=== PATIENT | female | born 1970 | race Caucasian/White ===

== ENCOUNTER 2018-04-12 06:51 | Day surgery (SDC) | payer OTHER ==
[2018-04-11 13:40] VITALS: BMI 29.8
[2018-04-12] MEDS ORDERED: ONDANSETRON 4 MG/2 ML VIAL IVPUSH PRN (07:25)
--- NOTE | 2018-04-12 07:29 | HP ---
Admitting History and Physical - Admission History of Present Illness: Patient is a 48 y/o female with a past medical history of depression and anxiety. Patient presents for ect, this will be her first ect. She reports ongoing feelings of depression. Patient denies any suicidal or homicidal ideation, visual or auditory hallucinations. She reports her current medication regimen has been ineffective and was referred to ECT. Patient does report a hospitalization 10 years ago for depression. Patient does report compliance with prescribed medications. History Source: Patient Limitations to Obtaining History: No Limitations - Past Medical History ...LMP: 03/15/18 - Past Surgical History Past Surgical History: Yes: None - Smoking History Smoking history: Never smoked Have you smoked in the past 12 months: No - Alcohol/Substance Use Hx Alcohol Use: No History of Substance Use: reports: None - Social History Usual Living Arrangement: Yes: With Spouse ADL: Independent Occupation: homemaker History of Recent Travel: No Home Medications - Allergies Allergies/Adverse Reactions: Allergies Allergy/AdvReac Type Severity Reaction Status Date / Time No Known Drug Allergies Allergy Verified 04/11/18 13:19 - Home Medications Home Medications: Ambulatory Orders Cariprazine HCl [Vraylar] 3 mg PO DAILY 04/11/18 Clozapine [Clozaril] 400 mg PO HS 04/11/18 Lorazepam [Ativan] 0.5 mg PO BID 04/11/18 Sertraline HCl [Zoloft 20mg/mL Oral Solution -] 50 mg PO DAILY 04/11/18 Family Disease History - Family Disease History Family History: Denies Review of Systems - Review of Systems Constitutional: reports: No Symptoms Eyes: reports: No Symptoms HENT: reports: No Symptoms Neck: reports: No Symptoms Cardiovascular: reports: No Symptoms Respiratory: reports: No Symptoms Gastrointestinal: reports: No Symptoms Genitourinary: reports: No Symptoms Musculoskeletal: reports: No Symptoms Integumentary: reports: No Symptoms Neurological: reports: No Symptoms Endocrine: reports: No Symptoms Hematology/Lymphatic: reports: No Symptoms Psychiatric: reports: Anxiety, Depression Physical Examination Constitutional: Yes: Well Nourished, Anxious Eyes: Yes: WNL, Conjunctiva Clear, EOM Intact HENT: Yes: WNL, Atraumatic, Normocephalic Neck: Yes: WNL, Supple, Trachea Midline Cardiovascular: Yes: WNL, Regular Rate and Rhythm, S1, S2 Respiratory: Yes: WNL, Regular, CTA Bilaterally Gastrointestinal: Yes: WNL, Normal Bowel Sounds, Soft ...Rectal Exam: Yes: Deferred Renal/: Yes: WNL Musculoskeletal: Yes: WNL Extremities: Yes: WNL Edema: No Peripheral Pulses WNL: Yes Peripheral Pulses: Left Radial: 4+, Right Radial: 4+, Left Doralis Pedis: 3+, Right Dorsalis Pedis: 3+, Left Femoral: 3+, Right Femoral: 3+ Integumentary: Yes: Other (liner healed scars to billateral distal extremities.) Neurological: Yes: WNL, Alert, Oriented ...Motor Strength: WNL Psychiatric: Yes: WNL, Alert, Oriented (reviewed 04/19 wnl) Imaging - Results EKG: Other (nsr non specific t wave abnormality) Assessment/Plan patient is a 48 y/o female that presents for ect, labs and ekg reviewed patient is medically optimized for procedure informed consent, risks/benefits to be obtained by Dr Zavala
[2018-04-12] MEDS ORDERED: KETAMINE HCL 500 MG/10 ML VIAL ONE (08:31)
[2018-04-12 10:39] VITALS: TEMP 98.4
[2018-04-12 10:47] VITALS: BP 146/73; PULSE 94
--- NOTE | 2018-04-17 20:14 | EKG ---
Test Reason : Blood Pressure : / mmHG Vent. Rate : 093 BPM Atrial Rate : 093 BPM P-R Int : 162 ms QRS Dur : 090 ms QT Int : 368 ms P-R-T Axes : 073 083 067 degrees QTc Int : 457 ms NORMAL SINUS RHYTHM NORMAL ECG NO PREVIOUS ECGS AVAILABLE Confirmed by MD CADE, SHANE ([id number]) on 04/17/2018 8:14:00 PM Referred By: Salvador Zavala Confirmed By:SHANE MOHAMUD MD
== END 2018-04-12 10:49 | disposition home or self-care (01) ==
LOC: FECT 06:51
PROVIDERS: ATTEND Psychiatry & Neurology Psychiatry
PROC: GZB4ZZZ Other Electroconvulsive Therapy (ICD-10-PCS; principal; 2018-04-12 08:15)
DX: F33.2 Major depressive disorder, recurrent severe without psychotic features (principal)
CPT/HCPCS: 84703; 90870; 93005; 93010; 94760

== ENCOUNTER → 2018-04-14 | Day surgery (SDC) | payer OTHER ==
[2018-04-12 13:54] VITALS: BMI 29.8
[~2018-04-14] MED LIST: KETAMINE HCL 500 MG/10 ML VIAL ONE; ONDANSETRON 4 MG/2 ML VIAL IVPUSH PRN; ONDANSETRON 4 MG/2 ML VIAL ONE
[2018-04-14 11:20] VITALS: TEMP 98.1
[2018-04-14 14:26] VITALS: BP 132/84; PULSE 86
== END | disposition home or self-care (01) ==
LOC: FECT 06:02
PROVIDERS: ATTEND Psychiatry & Neurology Psychiatry
PROC: GZB4ZZZ Other Electroconvulsive Therapy (ICD-10-PCS; principal; 2018-04-14 07:15)
DX: F33.2 Major depressive disorder, recurrent severe without psychotic features (principal)
CPT/HCPCS: 90870; 94760

== ENCOUNTER 2018-04-19 05:49 | Day surgery (SDC) | payer OTHER ==
[2018-04-12 14:02] VITALS: BMI 29.8
[2018-04-19 08:05] VITALS: TEMP 98.5
[2018-04-19 08:25] VITALS: BP 127/76; PULSE 92
== END 2018-04-19 08:58 | disposition home or self-care (01) ==
LOC: FECT 05:49
PROVIDERS: ATTEND Psychiatry & Neurology Psychiatry
PROC: GZB4ZZZ Other Electroconvulsive Therapy (ICD-10-PCS; principal; 2018-04-19 08:00)
DX: F33.2 Major depressive disorder, recurrent severe without psychotic features (principal)
CPT/HCPCS: 90870; 94760

== ENCOUNTER 2018-04-21 05:43 | Day surgery (SDC) | payer OTHER ==
[2018-04-12 14:20] VITALS: BMI 29.8
[2018-04-21] MEDS ORDERED: KETAMINE HCL 500 MG/10 ML VIAL ONE (09:25)
[2018-04-21 10:33] VITALS: TEMP 98.5
[2018-04-21 11:20] VITALS: BP 127/68; PULSE 90
== END 2018-04-21 11:15 | disposition home or self-care (01) ==
LOC: FECT 05:43
PROVIDERS: ATTEND Psychiatry & Neurology Psychiatry
PROC: GZB4ZZZ Other Electroconvulsive Therapy (ICD-10-PCS; principal; 2018-04-21 08:00)
DX: F33.2 Major depressive disorder, recurrent severe without psychotic features (principal)
CPT/HCPCS: 84703; 90870; 94760

== ENCOUNTER 2018-04-24 05:54 | Day surgery (SDC) | payer OTHER ==
[2018-04-21 12:38] VITALS: BMI 29.8
[2018-04-24] MEDS ORDERED: ONDANSETRON 4 MG/2 ML VIAL IVPUSH PRN (07:32)
[2018-04-24 10:07] VITALS: TEMP 98.7
[2018-04-24 10:34] VITALS: BP 139/90; PULSE 98
== END 2018-04-24 10:30 | disposition home or self-care (01) ==
LOC: FECT 05:54
PROVIDERS: ATTEND Psychiatry & Neurology Psychiatry
PROC: GZB4ZZZ Other Electroconvulsive Therapy (ICD-10-PCS; principal; 2018-04-24 08:15)
DX: F33.2 Major depressive disorder, recurrent severe without psychotic features (principal)
CPT/HCPCS: 90870; 94760

== ENCOUNTER 2018-04-26 05:41 | Day surgery (SDC) | payer OTHER ==
[2018-04-25 12:52] VITALS: BMI 29.8
[2018-04-26 06:32] VITALS: TEMP 98.2
[2018-04-26] MEDS ORDERED: ACETAMINOPHEN 325 MG TABLET (FP) PO PRN (07:08)
[2018-04-26 09:31] VITALS: BP 130/80; PULSE 90
== END 2018-04-26 08:45 | disposition home or self-care (01) ==
LOC: FECT 05:41
PROVIDERS: ATTEND Psychiatry & Neurology Psychiatry
PROC: GZB4ZZZ Other Electroconvulsive Therapy (ICD-10-PCS; principal; 2018-04-26 07:30)
DX: F33.2 Major depressive disorder, recurrent severe without psychotic features (principal)
CPT/HCPCS: 84703; 90870; 94760

== ENCOUNTER 2018-04-28 05:42 | Day surgery (SDC) | payer OTHER ==
[2018-04-27 13:58] VITALS: BMI 29.8
[2018-04-28] MEDS ORDERED: KETAMINE HCL 500 MG/10 ML VIAL ONE (08:13)
[2018-04-28 09:36] VITALS: TEMP 98.3
[2018-04-28 09:52] VITALS: BP 144/89; PULSE 89
== END 2018-04-28 09:45 | disposition home or self-care (01) ==
LOC: FECT 05:42
PROVIDERS: ATTEND Psychiatry & Neurology Psychiatry
PROC: GZB4ZZZ Other Electroconvulsive Therapy (ICD-10-PCS; principal; 2018-04-28 07:30)
DX: F33.2 Major depressive disorder, recurrent severe without psychotic features (principal)
CPT/HCPCS: 90870; 94760

== ENCOUNTER 2018-05-01 05:37 | Day surgery (SDC) | payer OTHER ==
[2018-04-28 12:16] VITALS: BMI 29.8
[2018-05-01] MEDS ORDERED: KETAMINE HCL 500 MG/10 ML VIAL ONE (07:57)
[2018-05-01 09:15] VITALS: TEMP 98
[2018-05-01 09:33] VITALS: BP 139/79; PULSE 92
== END 2018-05-01 09:45 | disposition home or self-care (01) ==
LOC: FECT 05:37
PROVIDERS: ATTEND Psychiatry & Neurology Psychiatry
PROC: GZB4ZZZ Other Electroconvulsive Therapy (ICD-10-PCS; principal; 2018-05-01 07:15)
DX: F33.2 Major depressive disorder, recurrent severe without psychotic features (principal)
CPT/HCPCS: 84703; 90870; 94760

== ENCOUNTER 2018-05-05 05:33 | Day surgery (SDC) | payer OTHER ==
[2018-05-02 10:27] VITALS: BMI 29.8
[2018-05-05] MEDS ORDERED: KETAMINE HCL 500 MG/10 ML VIAL ONE (07:16)
[2018-05-05] MEDS ORDERED: ONDANSETRON 4 MG/2 ML VIAL IVPUSH PRN (07:42)
[2018-05-05] MEDS ORDERED: ACETAMINOPHEN 325 MG TABLET (FP) PO PRN (07:42)
[2018-05-05 09:11] VITALS: BP 133/74; PULSE 80; TEMP 97.9
== END 2018-05-05 09:11 | disposition home or self-care (01) ==
LOC: FECT 05:33
PROVIDERS: ATTEND Psychiatry & Neurology Psychiatry
PROC: GZB4ZZZ Other Electroconvulsive Therapy (ICD-10-PCS; principal; 2018-05-05 07:00)
DX: F33.2 Major depressive disorder, recurrent severe without psychotic features (principal)
CPT/HCPCS: 84703; 90870; 94760

== ENCOUNTER 2018-05-08 05:32 | Day surgery (SDC) | payer OTHER ==
[2018-05-02 10:31] VITALS: BMI 29.8
[2018-05-08] MEDS ORDERED: KETAMINE HCL 500 MG/10 ML VIAL ONE (07:39)
[2018-05-08 08:49] VITALS: TEMP 98.9
[2018-05-08 09:26] VITALS: BP 149/90; PULSE 90
== END 2018-05-08 09:15 | disposition home or self-care (01) ==
LOC: FECT 05:32
PROVIDERS: ATTEND Psychiatry & Neurology Psychiatry
PROC: GZB4ZZZ Other Electroconvulsive Therapy (ICD-10-PCS; principal; 2018-05-08 07:00)
DX: F33.2 Major depressive disorder, recurrent severe without psychotic features (principal)
CPT/HCPCS: 90870; 94760